=== PATIENT | female | born 1990 | race Caucasian/White ===

== ENCOUNTER 2018-02-03 20:34 | Emergency (ER) | payer OTHER ==
[2018-02-03 20:43] VITALS: BP 128/79; PULSE 82; TEMP 98; BMI 30.2
--- NOTE | 2018-02-03 21:19 | PDOC ---
History of Present Illness - General Chief Complaint: Pain Stated Complaint: RT KNEE PAIN Time Seen by Provider: 02/03/18 21:10 - History of Present Illness Initial Comments: 27-year-old female presents for evaluation of atraumatic onset of right knee pain 3 weeks. She points to the anterior aspect of the right knee as the area of his discomfort she feels her pain is exacerbated with going up and down steps and for sitting for too long and in trying to stand. 02/03/18 21:15 Past History - Past Medical History Allergies/Adverse Reactions: Allergies Allergy/AdvReac Type Severity Reaction Status Date / Time No Known Allergies Allergy Verified 02/03/18 20:44 Home Medications: Ambulatory Orders Ibuprofen [Motrin -] 600 mg PO TID #30 tablet 02/03/18 COPD: No - Suicide/Smoking/Psychosocial Hx Smoking History: Current every day smoker Number of Cigarettes Smoked Daily: 4 Information on smoking cessation initiated: No Review of Systems - Review of Systems Musculoskeletal: Yes: See HPI, Joint Pain All Other Systems: Reviewed and Negative *Physical Exam - Vital Signs Last Vital Signs Temp Pulse Resp BP Pulse Ox 98 F 82 18 128/79 98 02/03/18 20:40 02/03/18 20:40 02/03/18 20:40 02/03/18 20:40 02/03/18 20:40 - Physical Exam Comments: Right knee skin color and temperature are normal. Her extensor mechanism is intact, range of motion 0-110 with pain and crepitation in the patellofemoral compartment. She has no patellofemoral instability positive grinding. No evidence of ligamentous instability. Negative straight leg raise test, normal hip range of motion. Thighs and calves are soft and nontender. She has no gross sensorimotor deficits. The left knee exam is normal 02/03/18 21:16 Medical Decision Making - Medical Decision Making This is patellofemoral syndrome I'll have her follow-up with orthopedic surgery Tylenol and Motrin for pain. Advised on the use of anti-inflammatories. 02/03/18 21:17 *DC/Admit/Observation/Transfer Diagnosis at time of Disposition: Patella-femoral syndrome - Discharge Dispostion Disposition: HOME Condition at time of disposition: Stable Decision to Admit order: No - Referrals Referrals: ON STAFF,NOT [Primary Care Provider] - Parth Fry MD [Staff Physician] - - Patient Instructions Printed Discharge Instructions: Patellofemoral Pain Syndrome Additional Instructions: Return to the emergency room should her symptoms worsen or go unresolved. Please take the anti-inflammatory as directed with food 3 times a day discontinue the medication of bothers her stomach she need to supplement the medication you can add Tylenol as directed. Follow-up with orthopedics in 2-3 days further evaluation and treatment options - Post Discharge Activity
== END 2018-02-03 21:23 | disposition home or self-care (01) ==
LOC: JERFT 20:34
DX: M22.2X1 Patellofemoral disorders, right knee (principal)
CPT/HCPCS: 99281-25

== ENCOUNTER 2018-09-20 21:59 | Inpatient (IN) | payer OTHER ==
[2018-09-20 22:02] VITALS: BMI 34.0
--- NOTE | 2018-09-20 22:39 | PDOC ---
History of Present Illness - General Chief Complaint: Pain Stated Complaint: PAIN ON THE LEFT SIDE Time Seen by Provider: 09/20/18 22:38 - History of Present Illness Initial Comments: 09/21/18 00:27 The patient is a 27 year old female with no significant PMH who presents for evaluation of left sided chest and abdominal pain. The patient reports a 1 day history of sharp lower chest/ upper abdominal pain worse with deep inspiration prompting her presentation to the ED for further evaluation. She denies similar symptoms in the past and notes that she has to take shallow breaths secondary to the pain. She notes that the pain radiates to her back and left shoulder as well. She otherwise denies fevers, chills, cough, nausea, vomiting , leg swelling, or changes with urination or bowel movements. She notes that she is on OCPs but denies any recent long travel. Past History - Past Medical History Allergies/Adverse Reactions: Allergies Allergy/AdvReac Type Severity Reaction Status Date / Time No Known Allergies Allergy Verified 09/20/18 22:02 Home Medications: Ambulatory Orders Clonidine HCl 0.1 mg PO DAILY 09/21/18 Escitalopram Oxalate [Lexapro -] 10 mg PO DAILY 09/21/18 Norgestimate-Ethinyl Estradiol [Sprintec 28 Day Tablet] 1 tab PO DAILY 09/21/18 COPD: No - Suicide/Smoking/Psychosocial Hx Smoking History: Never smoked Number of Cigarettes Smoked Daily: 4 Review of Systems - Review of Systems Comments:: 09/21/18 00:30 Constitutional: No fevers, chills, fatigue, malaise HEENT: No Rhinorrhea, nasal congestion, visual changes Cardiovascular: Chest pain. No syncope, palpitations, lightheadedness Respiratory: No Cough, Hemoptysis, Gastrointestinal: Abdominal pain. No Nausea, Vomiting, Constipation, Diarrhea, Melena Genitourinary: No Dysuria, Frequency, Urgency, Hesitancy, Hematuria, Flank pain Musculoskeletal: No Myalgia, arthralgia Skin: No rashes, itching, bruising, pallor Neurologic: No Headache, Dizziness, Numbness, Weakness, or Tingling Psychiatric: No Hallucinations. No SI or HI *Physical Exam - Vital Signs Last Vital Signs Temp Pulse Resp BP Pulse Ox 98.2 F 86 18 132/96 96 09/20/18 22:00 09/20/18 22:00 09/20/18 22:00 09/20/18 22:00 09/20/18 22:00 - Physical Exam Comments: 09/21/18 00:32 General Appearance: Nourished. No Apparent Distress HEENT: EOMI, SANTOS. No Pharyngeal Erythema, Tonsillar Exudate, Tonsillar Erythema Neck: No Cervical Lymphadenopathy Respiratory/Chest: Lungs Clear, Normal Breath Sounds. Tenderness to palpation along the left lower rib border on exam. No Crackles, Rales, Rhonchi, Wheezing Cardiovascular: Regular Rhythm, Regular Rate. No Murmur, Gallops, Rubs Gastrointestinal/Abdominal: Normal Bowel Sounds, Soft. No Guarding, Rebound, Tenderness Musculoskeletal: No CVA Tenderness Extremity: Normal Capillary Refill Integumentary: Normal Color, Dry, Warm Neurologic: Fully Oriented, Alert, Normal Mood/Affect, Normal Response, Heart Score/ECG Review #1 ECG reviewed & interpreted by me at: 00:54 General ECG Interpretation: Sinus Rhythm, Normal Rate, Normal Intervals, No acute ischemic changes 09/21/18 00:54 Normal Sinus Rhythm HR 64 QRS 92 QTc 425 ED Treatment Course - LABORATORY CBC & Chemistry Diagram: 09/21/18 00:05 09/21/18 00:05 Medical Decision Making - Medical Decision Making 09/21/18 00:37 The patient is a 27 year old female with no significant PMH who presents for evaluation of left sided chest and abdominal pain. Differential includes but is not limited to: PE, ACS, Musculockeletal, Infectious, Metabolic Derangement. Given the patient's history and physical exam, we will obtain a cbc, cmp, d- dimer, coags, troponin, serum preg, chest plain film, ekg to evaluate further. We will treat with tylenol and continue to monitor and reassess while here in the ED. 09/21/18 01:53 CBC, cmp, troponin are unremarkable. Chest plain film is Interpreted by ED Physician: CXR (2 view): no acute abnormality; no infiltrates, bones appear intact and structures normal alignment, cardiac silhouette within normal limits. no free air under diaphragm, no pneumothorax. D-dimer is elevated to 3500. We will obtain a chest CTA to evaluate for PE. We will continue to monitor and reassess while here in the ED. 09/21/18 03:56 Chest CTA demonstrates bilateral PEs right worse than left as preliminarily read by our stoner hand radiologist. We will treat the patient with 1mg/kg lovanox and the patient will require admission for further management. We discussed the case with the admitting team who accepted the patient for admission. *DC/Admit/Observation/Transfer Diagnosis at time of Disposition: Pulmonary embolism Qualifiers: Pulmonary embolism type: unspecified Chronicity: acute Acute cor pulmonale presence: without acute cor pulmonale Qualified Code(s): I26.99 - Other pulmonary embolism without acute cor pulmonale - Discharge Dispostion Condition at time of disposition: Stable - Referrals - Patient Instructions - Post Discharge Activity
[2018-09-20] MEDS ORDERED: ACETAMINOPHEN 1000 MG/100 ML VIAL (NON FORMULARY) IVPB ONE (23:11)
[2018-09-20] MEDS ORDERED: ACETAMINOPHEN INJECTION 100 ML IVPB ONE (23:55)
[2018-09-21 00:29] LABS: BASO % 1.5 % (0-2.0); EOS % 3.8 % (0-4.5); HEMOGLOBIN 12.2 GM/dL (10.7-15.3); LYMPH % 31.8 % (8-40); MCH 30.6 pg (25.7-33.7); MCHC 33.9 g/dl (32.0-36.0); MEAN CELL VOLUME 90.1 fl (80-96); MEAN PLT VOLUME 8.4 fl (7.5-11.1); MONO % 8.4 % (3.8-10.2); NEUT % 54.5 % (42.8-82.8); PLATELET COUNT 253 K/MM3 (134-434); RDW 13.3 % (11.6-15.6); WHITE BLOOD COUNT 9.2 K/mm3 (4.0-10.0)
[2018-09-21 00:52] LABS: ALBUMIN 3.5 g/dl (3.4-5.0); ALK PHOS 36 U/L (45-117); ANION GAP 9 MMOL/L (8-16); BILIRUBIN,TOTAL 0.2 mg/dL (0.2-1); BLOOD UREA NITROGEN 12 mg/dL (7-18); CALCIUM 8.9 mg/dL (8.5-10.1); CHLORIDE 105 mmol/L (98-107); CO2 23 mmol/L (21-32); CREATININE 0.7 mg/dL (0.55-1.3); GLUCOSE,RANDOM 86 mg/dL (74-106); LIPASE 147 U/L (73-393); POTASSIUM 3.9 mmol/L (3.5-5.1); SGOT/AST 13 U/L (15-37); SGPT/ALT 18 U/L (13-61); SODIUM 137 mmol/L (136-145); TOT PROT 7.3 g/dl (6.4-8.2)
[2018-09-21 00:56] LABS: INR 0.92 (0.83-1.09); PROTHROMBIN TIME (PATIENT) 10.8 SEC (9.7-13.0)
[2018-09-21 00:59] LABS: ACTIVATED PTT 28.9 SECONDS (25.2-36.5)
[2018-09-21] MEDS ORDERED: morphine CARPU-JECT 2 MG/1 ML DISP.SYRIN IVPUSH ONE (02:54)
[2018-09-21] MEDS ORDERED: ENOXAPARIN NA (PORCINE) 100 MG/1 ML DISP.SYRIN SQ ONE ×2 (02:54→03:11)
--- NOTE | 2018-09-21 03:03 | PDOC ---
Documentation entered by Nicol Gallardo SCRIBE, acting as scribe for Liana Sheffield DO. Liana Sheffield DO: This documentation has been prepared by the Paulina dc Daisy, SCRIBE, under my direction and personally reviewed by me in its entirety. I confirm that the documentation accurately reflects all work , treatment, procedures, and medical decision making performed by me. Attending Attestation - Resident Resident Name: KellyKosta - ED Attending Attestation I have performed the following: I have examined & evaluated the patient, The case was reviewed & discussed with the resident, I agree w/resident's findings & plan - HPI HPI: 09/20/18 23:10 The patient is a 27 YOF with no PMH who presents to the ER for left sided chest / left upper quadrant pain for the past day. Patient describes the left sided chest pain/LUQ pain as sharp and pleuritic with radiation to the upper back and left shoulder. She has taken motrin and tylenol at home with no relief. Denies similar symptoms in the past. She is currently on oral contraceptives. Denies any headache, leg swelling, dizziness, lightheadedness, F/C/N/V, constipation, diarrhea, or urinary symptoms. Allergies: NKDA PCP: Dr. Hall - Physicial Exam PE: 09/20/18 23:10 Agree with resident's exam. - Medical Decision Making 09/21/18 03:02 09/21/18 03:00: 38-year-old female with left-sided pleuritic chest pain CTAs consistent with bilateral pulmonary emboli Lovenox 1 mg/kg given subcutaneous in the emergency department with plans for admission for further evaluation
[2018-09-21] MEDS ORDERED: morphine SULFATE 4 MG/ML VIAL ONE ×2 (03:11→07:22)
--- NOTE | 2018-09-21 03:38 | PN ---
Teaching Attending Note Name of Resident: Kulwinder Cortez ATTENDING PHYSICIAN STATEMENT I saw and evaluated the patient. I reviewed the resident's note and discussed the case with the resident. I agree with the resident's findings and plan as documented. SUBJECTIVE: Seen and examined; please refer to resident note for further historical documentation. Briefly, this is a 27 y/o female presenting to the ER with 1 day of L-sided pleuritic chest pain radiating to her back and right neck not relieved with PRN use of OTC analgesics. Pain progressed enough she chose to come in. She has some associated diaphoresis. She notes mild evolving SOB over past several weeks. No family history of clotting, no recent travel. She does use OCPs and she smokes tobacco. She is overweight. 10 sys ROS done and negative aside from HPI PMH, PSH, FH, SH reviewed Home Medications Medication Instructions Recorded NK [No Known Home Medication] 09/21/18 *DOES TAKE LEXAPRO, Clonidine PRN for depression, Sprintec (OCP)- med list to be updated OBJECTIVE: VS, labs, imaging reviewed NAD, AAO, resting comfortably in bed RRR s1/2 no mgr Lungs CTAB, w/ sym exp NT ND +BS CN2-12 wnl, no fnd Normal mood, appropriate behavior CTA preliminary report shows filling defects seen in the bilateral PA b/l R>L EKG reviewed ASSESSMENT AND PLAN: Patient presents with pulmonary embolism 1) Acute Pulmonary Embolism -Lovenox BID, followup echo for R-sided changes, repeat troponin -Monitor telemetry; recommend OP hypercoagulable workup -DC OCP, recommend weight loss and smoking cessasion 2) Depression -Continue home medications once reconciled 3) Tobacco abuse -Counseled to stop smoking 4) Obesity -Weight loss counseling prior to DC Full Code
--- NOTE | 2018-09-21 03:48 | HP ---
CHIEF COMPLAINT: Pain on inspiration PCP: None HISTORY OF PRESENT ILLNESS: Pt is a 27 y/o lady with a PMH of Depression who presented to [facility] c/o pain in her left upper abdomen. Pt endorses that she began to develop severe pain in her right upper abdomen this past Thursday morning. Pt states the pain is sharp in nature, 10/10 in severity, constant, and radiates to her back as well as to the right side of her neck. Pt denies ever experiencing this type of pain in the past. Pt denies any recent trauma or prolonged travel. Denies any family history of blood clots. Pt also states that for the past few weeks, she has noticed that she has been more short of breath, especially when walking up to her 3rd floor apartment. Denies chest pain, lightheadedness, nausea/vomiting, hemoptysis or fever. Endorses increased sweating since Thursday. PMH- Colitis hospitalized at [facility] 2 years ago Social Hx- Denies alcohol use. Smokes 2 cigarettes per day. Denies drug use FH- Mother 5 cardiac stents. Father healthy. No FH of clotting disorders Meds- Spin-primo control, clonidine 0.1 mg, Lexapro 10 mg SurgHx- Cleft lip repair ER course was notable for: (1) CT Chest: B/L PE. Filling defects seen in pulmonary artery branches bilaterally. Right greater than left. (2) Administered Lovenox 100 MG Family History: Allergies No Known Allergies Allergy (Verified 09/20/18 22:02) HOME MEDICATIONS: Home Medications Medication Instructions Recorded NK [No Known Home Medication] 09/21/18 REVIEW OF SYSTEMS CONSTITUTIONAL: Absent: fever, chills, diaphoresis, generalized weakness, malaise, loss of appetite, weight change HEENT: Absent: rhinorrhea, nasal congestion, throat pain, throat swelling, difficulty swallowing, mouth swelling, ear pain, eye pain, visual changes CARDIOVASCULAR: Absent: chest pain, syncope, palpitations, irregular heart rate, lightheadedness , peripheral edema RESPIRATORY: PRESENT cough, shortness of breath, dyspnea with exertion GASTROINTESTINAL: Absent: abdominal pain, abdominal distension, nausea, vomiting, diarrhea, constipation, melena, hematochezia GENITOURINARY: Absent: dysuria, frequency, urgency, hesitancy, hematuria, flank pain, genital pain MUSCULOSKELETAL: Absent: myalgia, arthralgia, joint swelling, back pain, neck pain SKIN: Absent: rash, itching, pallor HEMATOLOGIC/IMMUNOLOGIC: Absent: easy bleeding, easy bruising, lymphadenopathy, frequent infections ENDOCRINE: Absent: unexplained weight gain, unexplained weight loss, heat intolerance, cold intolerance NEUROLOGIC: Absent: headache, focal weakness or paresthesias, dizziness, unsteady gait, seizure, mental status changes, bladder or bowel incontinence PSYCHIATRIC: Absent: anxiety, depression, suicidal or homicidal ideation, hallucinations. PHYSICAL EXAMINATION Vital Signs - 24 hr 09/20/18 22:00 Temperature 98.2 F Pulse Rate 86 Respiratory 18 Rate Blood Pressure 132/96 O2 Sat by Pulse 96 Oximetry (%) GENERAL: NAD HEAD: Normal with no signs of trauma. EYES: EOMI Sclera Clear EARS, NOSE, THROAT: MMM NECK: Normal range of motion, supple without lymphadenopathy, JVD, or masses. LUNGS: CTAB HEART: RRRR NL S1S2 ABDOMEN: TTP LUQ MUSCULOSKELETAL: FROM UPPER EXTREMITIES: 2+ pulses, warm, well-perfused. No cyanosis. No clubbing. No peripheral edema. LOWER EXTREMITIES: No CCE NEUROLOGICAL: Cranial nerves II-XII intact. Normal speech. Normal gait. PSYCHIATRIC: Cooperative. Good eye contact. Appropriate mood and affect. SKIN: Warm, dry, normal turgor, no rashes or lesions noted, normal capillary refill. Laboratory Results - last 24 hr 09/21/18 09/21/18 09/21/18 00:01 00:05 00:05 WBC 9.2 RBC 4.00 Hgb 12.2 Hct 36.0 MCV 90.1 MCH 30.6 MCHC 33.9 RDW 13.3 Plt Count 253 MPV 8.4 Absolute Neuts (auto) 5.0 Neutrophils % 54.5 Lymphocytes % 31.8 Monocytes % 8.4 Eosinophils % 3.8 Basophils % 1.5 Nucleated RBC % 0 PT with INR INR PTT (Actin FS) D-Dimer Sodium 137 Potassium 3.9 Chloride 105 Carbon Dioxide 23 Anion Gap 9 BUN 12 Creatinine 0.7 Creat Clearance w eGFR 99.64 Random Glucose 86 Calcium 8.9 Total Bilirubin 0.2 AST 13 L ALT 18 Alkaline Phosphatase 36 L Creatine Kinase 60 Troponin I < 0.02 Total Protein 7.3 Albumin 3.5 Lipase 147 Serum , Qual Negative 09/21/18 09/21/18 09/21/18 00:05 00:05 00:05 WBC RBC Hgb Hct MCV MCH MCHC RDW Plt Count MPV Absolute Neuts (auto) Neutrophils % Lymphocytes % Monocytes % Eosinophils % Basophils % Nucleated RBC % PT with INR 10.80 INR 0.92 PTT (Actin FS) 28.9 D-Dimer 3504 H Sodium Potassium Chloride Carbon Dioxide Anion Gap BUN Creatinine Creat Clearance w eGFR Random Glucose Calcium Total Bilirubin AST ALT Alkaline Phosphatase Creatine Kinase Cancelled Troponin I Cancelled Total Protein Albumin Lipase Serum , Qual ASSESSMENT/PLAN: Pt is a 27 y/o lady with a PMH of Depression who presented to [facility] c/o pain in her left upper abdomen. Pt endorses that she began to develop severe pain in her right upper abdomen this past Thursday morning. #Bilateral Pulmonary Embolism -CT Chest W/ Contrast: B/L PE. Filling defects seen in pulmonary artery branches bilaterally. Right greater than left. - PE Anticoagulation: either may administer Lovenox 1 mg/kg Q12H or 1.5 mg/kg Daily. Administered Lovenox 100 MG in ED. Will continue patient on Lovenox 100 mg Q12H with option to bridge with Heparin until therapeutic INR or can switch to a DOAC. Day team to decide. -Will need to undergo full hypercoaguable work-up including Factor V Leiden Deficiency, Protein C and S deficiency. Heme Referral upon discharge -Will order echocardiogram to asses for Right ventricular dilation, right ventricular hypokinesia/dysfunction( Cazares's Sign) -Pt reports taking Sprintec (Norgestimate and Ethinyl Estradiol) OCP. Will D/C OCP and samara counseled patient on danger of concomitant tobacco use as synergistic effect in clot formation. -Will admit to Telemetry # Depression: Continue Clonidine and Lexapro #FEN No fluids Monitor Electrolytes Regular Diet #DVT ppx: Lovenox 100 mg Q12H #Dispo: Telemetry Visit type - Emergency Visit Emergency Visit: Yes ED Registration Date: 09/21/18 Care time: The patient presented to the Emergency Department on the above date and was hospitalized for further evaluation of their emergent condition. - New Patient This patient is new to me today: Yes Date on this admission: 09/21/18 - Critical Care Critical Care patient: No
[2018-09-21 06:11] LABS: EOS % 4.2 % (0-4.5); HEMATOCRIT 36.2 % (32.4-45.2); HEMOGLOBIN 12.2 GM/dL (10.7-15.3); LYMPH % 37.5 % (8-40); MCH 30.2 pg (25.7-33.7); MCHC 33.8 g/dl (32.0-36.0); MEAN CELL VOLUME 89.5 fl (80-96); MEAN PLT VOLUME 8.4 fl (7.5-11.1); MONO % 7.4 % (3.8-10.2); NEUT % 49.9 % (42.8-82.8); PLATELET COUNT 259 K/MM3 (134-434); RBC 4.05 M/mm3 (3.60-5.2); RDW 13.3 % (11.6-15.6); WHITE BLOOD COUNT 8.4 K/mm3 (4.0-10.0)
[2018-09-21 06:35] LABS: INR 0.99 (0.83-1.09); PROTHROMBIN TIME (PATIENT) 11.7 SEC (9.7-13.0)
[2018-09-21 06:37] LABS: ACTIVATED PTT 34.8 SECONDS (25.2-36.5)
[2018-09-21 06:49] LABS: ALBUMIN 3.5 g/dl (3.4-5.0); ALK PHOS 37 U/L (45-117); ANION GAP 10 MMOL/L (8-16); BILIRUBIN,TOTAL 0.3 mg/dL (0.2-1); BLOOD UREA NITROGEN 12 mg/dL (7-18); CHLORIDE 105 mmol/L (98-107); CO2 23 mmol/L (21-32); CREATININE 0.9 mg/dL (0.55-1.3); GLUCOSE,RANDOM 100 mg/dL (74-106); MAGNESIUM 2.2 mg/dL (1.8-2.4); PHOSPHOROUS 3.1 mg/dL (2.5-4.9); POTASSIUM 3.9 mmol/L (3.5-5.1); SGOT/AST 11 U/L (15-37); SGPT/ALT 16 U/L (13-61); SODIUM 138 mmol/L (136-145)
[2018-09-21 07:14] VITALS: TEMP 97.9
[2018-09-21] MEDS ORDERED: cloNIDine HCL 0.1 MG TABLET PO SCH (10:00)
[2018-09-21] MEDS ORDERED: ESCITALOPRAM OXALATE 10 MG TABLET (FP) PO SCH (10:00)
[2018-09-21] MEDS ORDERED: cloNIDine HCL 0.1 MG TABLET ONE (10:05)
[2018-09-21] MEDS ORDERED: ESCITALOPRAM OXALATE 10 MG TABLET (FP) ONE (10:06)
--- NOTE | 2018-09-21 11:53 | ECHO ---
Version: 1 Name: SONIA NORWOOD Exam: Adult Echocardiogram Study Date: 09/21/2018, 9:07 AM Age: 27 Years MMode/2D Measurements & Calculations IVSd: 0.73 cm LVIDs: 3.4 cm LVIDd: 4.7 cm LVPWd: 0.76 cm LVOT diam: 2.12 cm Ao root diam: 2.5 cm LA dimension: 3.5 cm Doppler Measurements & Calculations Lat Peak E' Declan: 17.6 cm/sec Med Peak E' Declan: 9.7 cm/sec MR max P.0 mmHg Ao max P.7 mmHg Ao mean P.1 mmHg Ao V2 max: 129.4 cm/sec TR max declan: 192.1 cm/sec TR max P.8 mmHg Procedure A complete two-dimensional transthoracic echocardiogram was performed (2D, M-mode, Doppler and color flow Doppler). The patient was in normal sinus rhythm during the exam. Left Ventricle The left ventricular size, thickness and function are normal. Ejection Fraction = 60%. Left Ventricu lar Filling pattern is normal for age. Right Ventricle Borderline right ventricular enlargement. The right ventricular systolic function is normal. Atria Normal left and right atrial size and function. Mitral Valve The mitral valve is normal. There is trace mitral regurgitation. Tricuspid Valve The tricuspid valve is normal. There is mild tricuspid regurgitation. Doppler findings do not sugges t pulmonary hypertension. Right ventricular systolic pressure is 20 mmhg. Aortic Valve The aortic valve is normal in structure and function. Pulmonic Valve The pulmonic valve is normal in structure and function. Trace pulmonic valvular regurgitation. Great Vessels The aortic root is normal size. Pericardium/Pleura There is no pericardial effusion. There is no pleural effusion. Summary Statements The left ventricular size, thickness and function are normal Ejection Fraction = 60%. Borderline right ventricular enlargement. The right ventricular systolic function is normal. Normal left and right atrial size and function. There is trace mitral regurgitation. There is mild tricuspid regurgitation. Doppler findings do not suggest pulmonary hypertension. Right ventricular systolic pressure is 20 mmhg. Trace pulmonic valvular regurgitation. MD Deandre Gill 09/21/2018, 10:53 AM Ordering Physician: FLACO SOTO Referring Physician: TEAGAN DANIELS Performed By: Paloma Osei
--- NOTE | 2018-09-21 11:53 | PN ---
Physical Exam: SUBJECTIVE: Patient seen and examined OBJECTIVE: Vital Signs Period Temp Pulse Resp BP Sys/Montanez Pulse Ox Last 24 Hr 97.9 F-98.2 F 75-86 18 111-132/57-96 96-99 GENERAL: The patient is awake, alert, and fully oriented, in no acute distress. HEAD: Normal with no signs of trauma. EYES: PERRL, extraocular movements intact, sclera anicteric, conjunctiva clear. No ptosis. ENT: Ears normal, nares patent, oropharynx clear without exudates, moist mucous membranes. NECK: Trachea midline, full range of motion, supple. LUNGS: Breath sounds equal, clear to auscultation bilaterally, no wheezes, no crackles, no accessory muscle use. HEART: Regular rate and rhythm, S1, S2 without murmur, rub or gallop. ABDOMEN: Soft, nontender, nondistended, normoactive bowel sounds, no guarding, no rebound, no hepatosplenomegaly, no masses. EXTREMITIES: 2+ pulses, warm, well-perfused, no edema. NEUROLOGICAL: Cranial nerves II through XII grossly intact. Normal speech, gait not observed. PSYCH: Normal mood, normal affect. SKIN: Warm, dry, normal turgor, no rashes or lesions noted Laboratory Results - last 24 hr 09/21/18 09/21/18 09/21/18 00:01 00:05 00:05 WBC 9.2 RBC 4.00 Hgb 12.2 Hct 36.0 MCV 90.1 MCH 30.6 MCHC 33.9 RDW 13.3 Plt Count 253 MPV 8.4 Absolute Neuts (auto) 5.0 Neutrophils % 54.5 Lymphocytes % 31.8 Monocytes % 8.4 Eosinophils % 3.8 Basophils % 1.5 Nucleated RBC % 0 PT with INR INR PTT (Actin FS) D-Dimer Sodium 137 Potassium 3.9 Chloride 105 Carbon Dioxide 23 Anion Gap 9 BUN 12 Creatinine 0.7 Creat Clearance w eGFR 99.64 Random Glucose 86 Calcium 8.9 Phosphorus Magnesium Total Bilirubin 0.2 AST 13 L ALT 18 Alkaline Phosphatase 36 L Creatine Kinase 60 Troponin I < 0.02 Total Protein 7.3 Albumin 3.5 Lipase 147 Serum , Qual Negative 09/21/18 09/21/18 09/21/18 00:05 00:05 00:05 WBC RBC Hgb Hct MCV MCH MCHC RDW Plt Count MPV Absolute Neuts (auto) Neutrophils % Lymphocytes % Monocytes % Eosinophils % Basophils % Nucleated RBC % PT with INR 10.80 INR 0.92 PTT (Actin FS) 28.9 D-Dimer 3504 H Sodium Potassium Chloride Carbon Dioxide Anion Gap BUN Creatinine Creat Clearance w eGFR Random Glucose Calcium Phosphorus Magnesium Total Bilirubin AST ALT Alkaline Phosphatase Creatine Kinase Cancelled Troponin I Cancelled Total Protein Albumin Lipase Serum , Qual 09/21/18 09/21/18 09/21/18 05:20 05:20 06:00 WBC 8.4 RBC 4.05 Hgb 12.2 Hct 36.2 MCV 89.5 MCH 30.2 MCHC 33.8 RDW 13.3 Plt Count 259 MPV 8.4 Absolute Neuts (auto) 4.2 Neutrophils % 49.9 Lymphocytes % 37.5 Monocytes % 7.4 Eosinophils % 4.2 Basophils % 1.0 Nucleated RBC % 0 PT with INR 11.70 INR 0.99 PTT (Actin FS) 34.8 D-Dimer Sodium 138 Potassium 3.9 Chloride 105 Carbon Dioxide 23 Anion Gap 10 BUN 12 Creatinine 0.9 Creat Clearance w eGFR 74.56 Random Glucose 100 Calcium 9.0 Phosphorus 3.1 Magnesium 2.2 Total Bilirubin 0.3 AST 11 L ALT 16 Alkaline Phosphatase 37 L Creatine Kinase Troponin I Total Protein 7.0 Albumin 3.5 Lipase Serum , Qual Active Medications Generic Name Dose Route Start Last Admin Trade Name Freq PRN Reason Stop Dose Admin Clonidine 0.1 mg 09/21/18 10:00 09/21/18 10:10 Catapres - PO 0.1 mg DAILY DARSHAN Administration Enoxaparin Sodium 100 mg 09/21/18 15:30 Lovenox - SQ Q12H [facility] Escitalopram Oxalate 10 mg 09/21/18 10:00 09/21/18 10:10 Lexapro - PO 10 mg DAILY DARSHAN Administration ASSESSMENT/PLAN:
--- NOTE | 2018-09-21 11:58 | CON.PULM ---
Consult Consult Specialty:: PULMONARY Referred by:: Dr Quiles Reason for Consultation:: pulmonary embolism - History of Present Illness Chief Complaint: chest pain History of Present Illness: 27yo female with h/o depression who presents with right sided chest pain x 2 days. Pain sharp in nature, worse with deep inspiration. Found to have bilateral filling defects on CTA chest. She is a light smoker, started OCP about 2 1/2 months ago. No personal or family history of clots. She is not sedentary, no recent prolonged immobility. No leg trauma. - History Source History Provided By: Patient, Medical Record Limitations to Obtaining History: No Limitations - Past Medical History Psych: Yes: Depression - Smoking History Smoking history: Never smoked Aproximately how many cigarettes per day: 4 Home Medications - Allergies Allergies/Adverse Reactions: Allergies Allergy/AdvReac Type Severity Reaction Status Date / Time No Known Allergies Allergy Verified 09/20/18 22:02 - Home Medications Home Medications: Ambulatory Orders Clonidine HCl 0.1 mg PO DAILY 09/21/18 Escitalopram Oxalate [Lexapro -] 10 mg PO DAILY 09/21/18 Norgestimate-Ethinyl Estradiol [Sprintec 28 Day Tablet] 1 tab PO DAILY 09/21/18 Review of Systems - Review of Systems Constitutional: denies: Chills, Fever Eyes: denies: Recent Change in Vision HENT: denies: Nasal Congestion, Throat Pain Neck: denies: Stiffness, Tenderness Cardiovascular: reports: Chest Pain, Shortness of Breath. denies: Edema, Palpitations Respiratory: denies: Cough, Hemoptysis, Wheezing Gastrointestinal: denies: Abdominal Pain, Nausea, Vomiting Genitourinary: denies: Dysuria, Hematuria Neurological: denies: Dizziness, Headache Endocrine: denies: Unexplained Weight Loss Physical Exam Vital Sings: Vital Signs Temperature 97.9 F 09/21/18 07:13 Pulse Rate 75 09/21/18 07:13 Respiratory Rate 18 09/20/18 22:00 Blood Pressure 111/57 L 09/21/18 07:13 O2 Sat by Pulse Oximetry (%) 99 09/21/18 07:13 Constitutional: Yes: Calm Eyes: Yes: Conjunctiva Clear, EOM Intact HENT: Yes: Atraumatic, Normocephalic Neck: Yes: Supple, Trachea Midline Cardiovascular: Yes: Regular Rate and Rhythm Respiratory: Yes: Regular, CTA Bilaterally ...Clubbing: No Gastrointestinal: Yes: Normal Bowel Sounds, Soft. No: Tenderness Edema: No Neurological: Yes: Alert, Oriented Labs: CBC, BMP 09/21/18 05:20 09/21/18 05:20 Imaging - Results Chest X-ray: Report Reviewed, Image Reviewed Cat Scan: Report Reviewed, Image Reviewed (bilateral segmental PEs) Assessment/Plan Acute Bilateral Pulmonary Emboli Depression - continue anticoagulation - echocardiogram - if no evidence of right heart dysfunction, can start PO anticoagulation - O2 to keep Spo2 >90% - pain control - will need anticoagulation for at least 6 months - smoking cessation discussed - stop OCPs Thank you for this consult Rohit Alford MD
--- NOTE | 2018-09-21 12:27 | EKG ---
Test Reason : Blood Pressure : / mmHG Vent. Rate : 064 BPM Atrial Rate : 064 BPM P-R Int : 152 ms QRS Dur : 092 ms QT Int : 412 ms P-R-T Axes : 016 038 007 degrees QTc Int : 425 ms NORMAL SINUS RHYTHM WITH SINUS ARRHYTHMIA NORMAL ECG Confirmed by MD ADRI, CALEB ([id number]) on 09/21/2018 12:26:59 PM Referred By: Confirmed By:CALEB RUSH MD
[2018-09-21] MEDS ORDERED: ACETAMINOPHEN 325 MG TABLET (FP) PO PRN (13:13)
[2018-09-21] MEDS ORDERED: ACETAMINOPHEN 1000 MG/100 ML VIAL (NON FORMULARY) IVPB ONE (13:25)
--- NOTE | 2018-09-21 13:48 | PN ---
Teaching Attending Note Name of Resident: Nu Blue ATTENDING PHYSICIAN STATEMENT I saw and evaluated the patient. I reviewed the resident's note and discussed the case with the resident. I agree with the resident's findings and plan as documented. SUBJECTIVE: L sided chest pain, with deep respiration. no SOB, no fever or chills. no cough. OBJECTIVE: NAD CV: RRR, no MRG Lungs: CTAB Abd; soft, NT, ND , NL Bs , no masses felt Ext : no edema or erythema. ASSESSMENT AND PLAN: 27 y/o lady with h/o anxiety, on OCPs, and nicotine dependence. She presented with chest pain and was found to have acute b/l PEs. 1- B/l PEs: likely due to OCP use. No signs of R heart strain on EKG and echo. - will switch to po AC, will call her pharmacy for insurance coverage. - she agrees to AC, accepting the risk of bleed , even spinal bleed with NOAcs. if NoCAs are not covered, then will start coumadin - stop OCP. No smoking - f/u with heme as out pt - duration at least 6 months, heme w/u and further Recs - Not requiring any O2 at rest. will perform pre-and post ambulatory pulse ox. 2- Depression and anxiety: lexapro and clonidine ( clonidine was prescribed to her recently ) dispo : dc home today pending insurance approval
[2018-09-21] MEDS ORDERED: RIVAROXABAN 15 MG TABLET PO ONE (15:00)
[2018-09-21] MEDS ORDERED: ACETAMINOPHEN INJECTION 100 ML IVPB ONE (15:07)
[2018-09-21 15:29] VITALS: BP 102/65; PULSE 56
[2018-09-21] MEDS ORDERED: ENOXAPARIN NA (PORCINE) 100 MG/1 ML DISP.SYRIN SQ SCH (15:30)
--- NOTE | 2018-09-21 16:28 | DS ---
Physical Exam: SUBJECTIVE: Patient seen and examined this AM. Continues to have Left sided chest pain with deep inspiration. Denies any SOB, hemoptysis. Denies any personal or FHx of clotting disorders, no hx of miscarriages. OBJECTIVE: Vital Signs Period Temp Pulse Resp BP Sys/Montanez Pulse Ox Last 24 Hr 97.9 F-98.2 F 56-86 16-18 102-132/57-96 96-99 PHYSICAL EXAM GENERAL: A&Ox3, NAD HEAD: NCAT EYES: PERRL, EOMI ENT: moist mucous membranes NECK: supple LUNGS: Clear to auscultation bilaterally, no wheezes, no crackles HEART: Regular rate and rhythm, S1, S2 without murmur ABDOMEN: Soft, nontender, nondistended, + bowel sounds, no guarding EXTREMITIES: no edema, Negative hommans sign NEUROLOGICAL: Cranial nerves II through XII grossly intact. Normal speech SKIN: Warm, dry LABS Laboratory Results - last 24 hr 09/21/18 09/21/18 09/21/18 00:01 00:05 00:05 WBC 9.2 RBC 4.00 Hgb 12.2 Hct 36.0 MCV 90.1 MCH 30.6 MCHC 33.9 RDW 13.3 Plt Count 253 MPV 8.4 Absolute Neuts (auto) 5.0 Neutrophils % 54.5 Lymphocytes % 31.8 Monocytes % 8.4 Eosinophils % 3.8 Basophils % 1.5 Nucleated RBC % 0 PT with INR INR PTT (Actin FS) D-Dimer Sodium 137 Potassium 3.9 Chloride 105 Carbon Dioxide 23 Anion Gap 9 BUN 12 Creatinine 0.7 Creat Clearance w eGFR 99.64 Random Glucose 86 Calcium 8.9 Phosphorus Magnesium Total Bilirubin 0.2 AST 13 L ALT 18 Alkaline Phosphatase 36 L Creatine Kinase 60 Troponin I < 0.02 Total Protein 7.3 Albumin 3.5 Lipase 147 Serum , Qual Negative 09/21/18 09/21/18 09/21/18 00:05 00:05 00:05 WBC RBC Hgb Hct MCV MCH MCHC RDW Plt Count MPV Absolute Neuts (auto) Neutrophils % Lymphocytes % Monocytes % Eosinophils % Basophils % Nucleated RBC % PT with INR 10.80 INR 0.92 PTT (Actin FS) 28.9 D-Dimer 3504 H Sodium Potassium Chloride Carbon Dioxide Anion Gap BUN Creatinine Creat Clearance w eGFR Random Glucose Calcium Phosphorus Magnesium Total Bilirubin AST ALT Alkaline Phosphatase Creatine Kinase Cancelled Troponin I Cancelled Total Protein Albumin Lipase Serum , Qual 09/21/18 09/21/18 09/21/18 05:20 05:20 06:00 WBC 8.4 RBC 4.05 Hgb 12.2 Hct 36.2 MCV 89.5 MCH 30.2 MCHC 33.8 RDW 13.3 Plt Count 259 MPV 8.4 Absolute Neuts (auto) 4.2 Neutrophils % 49.9 Lymphocytes % 37.5 Monocytes % 7.4 Eosinophils % 4.2 Basophils % 1.0 Nucleated RBC % 0 PT with INR 11.70 INR 0.99 PTT (Actin FS) 34.8 D-Dimer Sodium 138 Potassium 3.9 Chloride 105 Carbon Dioxide 23 Anion Gap 10 BUN 12 Creatinine 0.9 Creat Clearance w eGFR 74.56 Random Glucose 100 Calcium 9.0 Phosphorus 3.1 Magnesium 2.2 Total Bilirubin 0.3 AST 11 L ALT 16 Alkaline Phosphatase 37 L Creatine Kinase Troponin I Total Protein 7.0 Albumin 3.5 Lipase Serum , Qual IMAGING: -CXR: Arthritic spine changes. Bilateral atelectatic change by left heart border. -CTA: Bilateral pulmonary artery emboli, as described above. Normal size and enhancement of the thoracic and included proximal abdominal aorta. Atelectatic changes in lingular segment of the left upper lobe as well as in the left lung base with a small left pleural effusion. Cannot rule out superimposed infiltrates. -ECHO: LV EF 60%, Borderline RV Enlargement, RV Systolic function is normal. LA and RA size and function normal. Trace MR, Mild TR. -EKG: NSR with Sinus arrhythmia, VR 64, QTc 425 HOSPITAL COURSE: Date of Admission:09/21/18 Date of Discharge: 09/21/18 27 y/o F with PMHx of Depression, Anxiety presented with LUQ Pain, found to have b/l PE on CTA. Imaging and labwork noted above. Pulmonology was consulted. Echo did not reveal signs of right heart strain. Patient was started on Lovenox and eventually transitioned to PO Rivaroxaban. Patients SOB resolved and her chest pain improved. She was advised to follow up with Hematology outpatient for a full hypercoaguable workup. Patient was advised to completely stop smoking and to stop OCP use. Additionally she was advised on strict medication compliance and informed she will require DOAC for atleast 6 months. Finally, she was advised to stop clonidine use and to follow up with her PCP for alternatives. Patient was discharged home with strict instructions for medication compliance, tobacco and OCP cessation and physician follow up. Minutes to complete discharge: 36 Discharge Summary Reason For Visit: PULMONARY EMBOLISM Condition: Stable - Instructions Diet, Activity, Other Instructions: You were admitted to the hospital because you had a difficulty breathing and were found to have pulmonary embolism. You were started on a blood thinner and your shortness of breath improved. Medication Changes: 1. You are being started on Xarelto. this medication is a BLOOD THINNER--- Please watch for any signs of bleeding including in your stool--PLEASE CALL YOUR DOCTOR OR RETURN TO THE EMERGENCY ROOM IF YOU EXPERIENCE THIS Please take 15mg Twice a day for 21 days starting tomorrow. Then take 20mg once a day afterwards.(on 10/14/18) As we discussed, it is VERY IMPORTANT that you do not smoke or use tobacco products any more. You will also need to to stop taking oral contraceptives as well. It is also advised to discuss other alternatives to clonidine for your anxiety with your primary care doctor. It is not a first line medication for anxiety. Follow up with the following physicians: 1. Primary care physician in one week for follow up lab work, and you may need a speech and swallow evaluation 2. Hematology--Dr. Hernandez---You need to have a hypercoaguable work-up to rule out any other causes of blood clot. Continue all your other medications as prescribed Please return to the ER if you have any signs or symptoms of chest pain, shortness of breath, uncontrollable fever, chills, nausea, vomiting, numbness, tingling, or weakness in any part of your body, changes in vision, slurred speech, changes in speech/gait, or dizziness. Please return to the ER if symptoms persist, worsen, or new symptoms arise. Referrals: Mitch Hernandez MD [Staff Physician] - Disposition: HOME - Home Medications Comprehensive Discharge Medication List: Ambulatory Orders Escitalopram Oxalate [Lexapro -] 10 mg PO DAILY 09/21/18 Rivaroxaban [Xarelto -] 20 mg PO DAILY #60 tablet 09/21/18 Rivaroxaban [Xarelto] 15 mg PO BID 21 Days #42 tab 09/21/18 This patient is new to me today: Yes Date on this admission: 09/21/18 Emergency Visit: Yes ED Registration Date: 09/21/18 Care time: The patient presented to the Emergency Department on the above date and was hospitalized for further evaluation of their emergent condition. Critical Care patient: No - Discharge Referral [facility]erred to [facility] Med P.C.: No
== END 2018-09-21 15:42 | disposition home or self-care (01) | DRG 134 ==
LOC: JER 21:59 → JERBED 09-21 03:20
PROVIDERS: ADMIT Internal Medicine; ATTEND Internal Medicine
DX: I26.99 Other pulmonary embolism without acute cor pulmonale (principal); F32.9 Major depressive disorder, single episode, unspecified; E66.9 Obesity, unspecified; F41.9 Anxiety disorder, unspecified; F17.210 Nicotine dependence, cigarettes, uncomplicated; Z68.34 Body mass index [BMI] 34.0-34.9, adult
CPT/HCPCS: 36415; 71046-TC-FY; 71275-TC; 80053; 82550; 83690; 83735; 84100; 84484; 84703; 85025; 85379; 85610; 85730; 93005; 93010; 93306-TC; 99284-25; J0131; J0735

== ENCOUNTER 2018-11-14 22:35 | Emergency (ER) | payer OTHER ==
[2018-11-14 22:57] VITALS: TEMP 98.5; BMI 34.0
[2018-11-15] MEDS ORDERED: SODIUM CHLORIDE 1,000 ML IV STA (00:37)
--- NOTE | 2018-11-15 01:02 | PDOC ---
History of Present Illness - General Chief Complaint: Lightheaded Stated Complaint: LIGHTHEADED Time Seen by Provider: 11/15/18 00:00 History Source: Patient Exam Limitations: No Limitations - History of Present Illness Initial Comments: 11/15/18 00:37 27 y/o F with PMHx of Depression, Anxiety, B/L PE (on Xarelto) presents with lightheadedness. Patient was in her usual state of health until this evening. While standing in the kitchen, she began to experience lightheadedness with dizziness and feelings of passing out. Shortly after she felt diaphoretic. This episode lasted a few minutes prompting her to visit the ED. Patient admits to decreased PO intake with persistent feelings of nausea. Additionally, she mentions having diarrhea for the past week, having 5 episodes of loose, odd smelling, non bloody BM's today. Patient was recently admitted to [facility] for B/L PE's and was started on Xarelto. She has not followed with Hematology since then. She has however stopped using Tobacco and OCPs. Patient endorses chronic SOB with exertion and intermittent chest discomfort. During my interview patient does not feel SOB or chest discomfort/pain. Denies any recent trauma, ABx use, travel, new resturants/cuisine, sick contacts or recent medication changes. Denies any Fevers, chills, weakness, chest pain, SOB, nausea, vomiting, diarrhea constipation, dysuria. PCP: Rafael (Gurpreet Solis) PMHx: Depression, Anxiety, B/L PE PSHx: Cleft Palate repair Allergies: Denies Social: Denies Tobacco, EtOH or Drug use, Not on OCP at this time FHx: Mother with heart disease (5 cardiac stents) Past History - Past Medical History Allergies/Adverse Reactions: Allergies Allergy/AdvReac Type Severity Reaction Status Date / Time No Known Allergies Allergy Verified 11/14/18 22:53 Home Medications: Ambulatory Orders Escitalopram Oxalate [Lexapro -] 10 mg PO DAILY 09/21/18 Rivaroxaban [Xarelto -] 20 mg PO DAILY #60 tablet 09/21/18 Methylphenidate HCl [Concerta] 18 mg PO DAILY 11/14/18 Rivaroxaban [Xarelto -] 20 mg PO DAILY #30 tablet 11/15/18 COPD: No Other medical history: pulmonary embolism - Suicide/Smoking/Psychosocial Hx Smoking History: Former smoker Have you smoked in the past 12 months: Yes Number of Cigarettes Smoked Daily: 4 If you are a former smoker, when did you quit?: 2 months ago Information on smoking cessation initiated: No Review of Systems - Review of Systems Constitutional: No: Chills, Fever Respiratory: Yes: SOB with Exertion (for the past 2 months). No: Cough Cardiac (ROS): Yes: Lightheadedness. No: Chest Pain ABD/GI: Yes: Diarrhea, Nausea. No: Constipated, Vomiting : No: Dysuria, Hematuria Neurological: No: Numbness, Tingling *Physical Exam - Vital Signs Last Vital Signs Temp Pulse Resp BP Pulse Ox 98.5 F 101 H 20 138/84 97 11/14/18 22:54 11/14/18 22:54 11/14/18 22:54 11/14/18 22:54 11/14/18 22:54 - Physical Exam General Appearance: Yes: Nourished, Appropriately Dressed HEENT: positive: EOMI, SANTOS. negative: Pharyngeal Erythema, Tonsillar Exudate Neck: positive: Supple Respiratory/Chest: positive: Lungs Clear, Normal Breath Sounds. negative: Accessory Muscle Use, Crackles, Rhonchi, Wheezing Cardiovascular: positive: Regular Rhythm, Regular Rate, S1, S2. negative: Edema , JVD, Murmur Gastrointestinal/Abdominal: positive: Normal Bowel Sounds, Soft. negative: Guarding, Rebound, Tenderness Musculoskeletal: negative: CVA Tenderness Extremity: negative: Swelling Neurologic: positive: iridologist II-XII NML intact, Fully Oriented, Alert, Motor Strength 5/5 ED Treatment Course - LABORATORY CBC & Chemistry Diagram: 11/15/18 00:55 11/15/18 00:55 Medical Decision Making - Medical Decision Making 11/15/18 01:01 27 y/o F with PMHx of Depression, Anxiety, B/L PE (on Xarelto) presents with lightheadedness and dizziness in the setting of recent diarrhea. Has a hx of Colitis 2 years ago but has not followed with GI nor has had the recommended colonoscopy. Loose BM's are non bloody and NOT accompanied by cramping abdominal pain, Hx less suggestive of infectious etiology. Concern that the diarrheal episodes have led to metabolic derraingements, but unclear etiology of diarrhea. EKG: NSR with no ST segment changes, VR 74, QTc 435 Will Check CBC, CMP, Cardiac profile, mag, phos, UA, UPreg, INR, orthostatic vitals Hydrate with 1L NS Bolus Ongoing assessment 11/15/18 01:35 Orthostatics Positive. Continue IV Hydration. Signed out to Dr. Sorenson. *DC/Admit/Observation/Transfer Diagnosis at time of Disposition: Lightheaded - Discharge Dispostion Disposition: HOME Condition at time of disposition: Stable - Prescriptions Prescriptions: Rivaroxaban [Xarelto -] 20 mg PO DAILY #30 tablet - Referrals Referrals: Kosta Hall MD [Primary Care Provider] - - Patient Instructions Printed Discharge Instructions: Diarrhea Additional Instructions: Your ER visit is not complete until your follow up with your primary care physician. Please follow up with your primary care physician in 1-2 days. Please return to the ER if you have any signs or symptoms of chest pain, shortness of breath, uncontrollable fever, chills, nausea, vomiting, numbness, tingling, or weakness in any part of your body, changes in vision, or slurred speech. Please take your medications as prescribed. Please return to the ER if symptoms persist, worsen, or new symptoms arise. - Post Discharge Activity
[2018-11-15 01:06] LABS: HCG,QUALITATIVE URINE Negative
[2018-11-15 01:19] LABS: EOS % 4.2 % (0-4.5); HEMATOCRIT 38.7 % (32.4-45.2); HEMOGLOBIN 13.2 GM/dL (10.7-15.3); LYMPH % 41.2 % (8-40); MCH 30.4 pg (25.7-33.7); MCHC 34.3 g/dl (32.0-36.0); MEAN CELL VOLUME 88.8 fl (80-96); MEAN PLT VOLUME 8.4 fl (7.5-11.1); MONO % 9.8 % (3.8-10.2); NEUT % 43.8 % (42.8-82.8); PLATELET COUNT 257 K/MM3 (134-434); RBC 4.35 M/mm3 (3.60-5.2); RDW 13.6 % (11.6-15.6); WHITE BLOOD COUNT 8.4 K/mm3 (4.0-10.0)
[2018-11-15 01:27] LABS: INR 0.9 (0.83-1.09); PROTHROMBIN TIME (PATIENT) 10.6 SEC (9.7-13.0)
[2018-11-15 01:30] LABS: ACTIVATED PTT 35.2 SECONDS (25.2-36.5)
[2018-11-15 01:33] LABS: URINE APPEARANCE CLOUDY; URINE BILIRUBIN NEGATIVE (NEGATIVE); URINE COLOR YELLOW; URINE GLUCOSE (UA) NEGATIVE (NEGATIVE); URINE KETONE NEGATIVE (NEGATIVE)
[2018-11-15 01:34] LABS: PH,URINE 5.5 (5.0-8.0); URINE PROTEIN NEGATIVE (NEGATIVE); URINE UROBILINOGEN 0.2 mg/dL (0.2-1.0)
[2018-11-15 01:35] LABS: URINE LEUK ESTERASE NEGATIVE (NEGATIVE); URINE NITRITE NEGATIVE (NEGATIVE)
[2018-11-15] MEDS ORDERED: RIVAROXABAN 15 MG TABLET PO ONE (01:44)
[2018-11-15 01:45] LABS: ALBUMIN 4.1 g/dl (3.4-5.0); ALK PHOS 37 U/L (45-117); ANION GAP 8 MMOL/L (8-16); BILIRUBIN,TOTAL 0.2 mg/dL (0.2-1); BLOOD UREA NITROGEN 16.9 mg/dL (7-18); CALCIUM 8.9 mg/dL (8.5-10.1); CHLORIDE 107 mmol/L (98-107); CO2 25 mmol/L (21-32); CREATININE 0.8 mg/dL (0.55-1.3); GLUCOSE,RANDOM 81 mg/dL (74-106); MAGNESIUM 2.3 mg/dL (1.8-2.4); PHOSPHOROUS 4.5 mg/dL (2.5-4.9); SGOT/AST 16 U/L (15-37); SGPT/ALT 24 U/L (13-61); SODIUM 141 mmol/L (136-145); TOT PROT 7.5 g/dl (6.4-8.2)
--- NOTE | 2018-11-15 01:47 | PDOC ---
*Physical Exam - Vital Signs Last Vital Signs Temp Pulse Resp BP Pulse Ox 98.5 F 70 20 113/68 97 11/14/18 22:54 11/15/18 01:20 11/14/18 22:54 11/15/18 01:20 11/14/18 22:54 ED Treatment Course - LABORATORY CBC & Chemistry Diagram: 11/15/18 00:55 11/15/18 00:55 - ADDITIONAL ORDERS Additional order review: Laboratory Results 11/15/18 11/15/18 11/15/18 00:55 00:55 00:55 PT with INR 10.60 INR 0.90 PTT (Actin FS) 35.2 Sodium 141 Potassium 4.0 Chloride 107 Carbon Dioxide 25 Anion Gap 8 BUN 16.9 Creatinine 0.8 Est GFR (CKD-EPI)AfAm 116.28 Est GFR (CKD-EPI)NonAf 100.33 Random Glucose 81 Calcium 8.9 Phosphorus 4.5 Magnesium 2.3 Total Bilirubin 0.2 AST 16 ALT 24 Alkaline Phosphatase 37 L Creatine Kinase Cancelled 132 Troponin I Cancelled < 0.02 Total Protein 7.5 Albumin 4.1 Urine Color Urine Appearance Urine pH Ur Specific [place] Urine Protein Urine Glucose (UA) Urine Ketones Urine Blood Urine Nitrite Urine Bilirubin Urine Urobilinogen Ur Leukocyte Esterase Urine HCG, Qual 11/15/18 00:45 PT with INR INR PTT (Actin FS) Sodium Potassium Chloride Carbon Dioxide Anion Gap BUN Creatinine Est GFR (CKD-EPI)AfAm Est GFR (CKD-EPI)NonAf Random Glucose Calcium Phosphorus Magnesium Total Bilirubin AST ALT Alkaline Phosphatase Creatine Kinase Troponin I Total Protein Albumin Urine Color Yellow Urine Appearance Cloudy Urine pH 5.5 Ur Specific [place] 1.030 Urine Protein Negative Urine Glucose (UA) Negative Urine Ketones Negative Urine Blood Negative Urine Nitrite Negative Urine Bilirubin Negative Urine Urobilinogen 0.2 Ur Leukocyte Esterase Negative Urine HCG, Qual Negative 11/15/18 00:55 RBC 4.35 MCV 88.8 MCHC 34.3 RDW 13.6 MPV 8.4 Neutrophils % 43.8 Lymphocytes % 41.2 H Monocytes % 9.8 Eosinophils % 4.2 Basophils % 1.0 - Medications Given in the ED: ED Medications Discontinued Medications Generic Name Dose Route Start Last Admin Trade Name Freq PRN Reason Stop Dose Admin Sodium Chloride 1,000 mls @ 1,000 mls/hr 11/15/18 00:37 11/15/18 00:55 Normal Saline - IV 11/15/18 01:36 1,000 mls/hr ASDIR STA Administration Medical Decision Making - Medical Decision Making 11/15/18 01:46 Pt signed out to me by Dr. Blue. 27F with a PMH of PE on xarelto (hasn't taken it in 5 days) who presents to the ER with lightheadedness and diarrhea. Orthostatics positive. Giving fluids and reassessing. PE and EKG unremarkable. Will reassess after fluids. Pending CMP, trop, and lipase. 11/15/18 03:23 IVF complete. Pt states she feels much better. Will recheck orthostats. 11/15/18 03:52 Pt states she feels better. Will d/c with PCP f/u. *DC/Admit/Observation/Transfer Diagnosis at time of Disposition: Lightheaded - Discharge Dispostion Disposition: HOME Condition at time of disposition: Stable Decision to Admit order: No - Prescriptions Prescriptions: Rivaroxaban [Xarelto -] 20 mg PO DAILY #30 tablet - Referrals Referrals: Kosta Hall MD [Primary Care Provider] - - Patient Instructions Printed Discharge Instructions: Diarrhea Additional Instructions: Your ER visit is not complete until your follow up with your primary care physician. Please follow up with your primary care physician in 1-2 days. Please return to the ER if you have any signs or symptoms of chest pain, shortness of breath, uncontrollable fever, chills, nausea, vomiting, numbness, tingling, or weakness in any part of your body, changes in vision, or slurred speech. Please take your medications as prescribed. Please return to the ER if symptoms persist, worsen, or new symptoms arise. - Post Discharge Activity
[2018-11-15 01:56] LABS: LIPASE 209 U/L (73-393)
--- NOTE | 2018-11-15 01:58 | PDOC ---
Attending Attestation - Resident Resident Name: Nu Blue - ED Attending Attestation I have performed the following: I have examined & evaluated the patient, The case was reviewed & discussed with the resident, I agree w/resident's findings & plan, Exceptions are as noted - HPI HPI: 11/15/18 01:55 This 27 yo female came in this evening because she has had 5 days of light, nonbloody, loose stools, and tonight felt lightheaded and clammy. PMH significant for PE diagnosed in August this year for which she is prescribed Xarelto but admits to running out of this medication 5 days ago. - Physicial Exam PE: 11/15/18 01:58 wnwd 27 yo female in no acute distress head ncat neck supple lungs cta b/l cvs [id number] abd no rebound, no guarding skin warm and dry no cvs tenderness neuro axox3,ambulatory,motor strength 5/5, b/l,no gross focal neuro deficits - Medical Decision Making 11/15/18 02:00 pt is afebrile, she is not hypoxic,she is not tachypnic and has a normal respiratory rate. She did not have any shortness of breath and she has no pleuretic chest pain - pt main c/o is diarrhea for several days and has positive orthostatic changes and is receiving IVF she was given xarelto will reassess after IVF
[2018-11-15 03:40] VITALS: BP 99/51; PULSE 83
--- NOTE | 2018-11-15 10:06 | EKG ---
Test Reason : Blood Pressure : / mmHG Vent. Rate : 074 BPM Atrial Rate : 074 BPM P-R Int : 146 ms QRS Dur : 094 ms QT Int : 392 ms P-R-T Axes : 014 033 020 degrees QTc Int : 435 ms NORMAL SINUS RHYTHM NORMAL ECG WHEN COMPARED WITH ECG OF 21-SEP-2018 00:38, NO SIGNIFICANT CHANGE WAS FOUND Confirmed by JOHN ROMAN MD ([id number]) on 11/15/2018 10:06:25 AM Referred By: Confirmed By:JOHN ROMAN MD
[2018-11-16] MEDS ORDERED: RIVAROXABAN 20 MG TABLET PO SCH (10:00)
== END 2018-11-15 04:50 | disposition home or self-care (01) ==
LOC: JER 22:35
PROC: 3E0337Z Introduction of Electrolytic and Water Balance Substance into Peripheral Vein, Percutaneous Approach (ICD-10-PCS; principal; 2018-11-14)
DX: R42 Dizziness and giddiness (principal); F41.9 Anxiety disorder, unspecified; F32.9 Major depressive disorder, single episode, unspecified; Z86.711 Personal history of pulmonary embolism; Z79.01 Long term (current) use of anticoagulants
CPT/HCPCS: 36415; 80053; 81003; 82550; 83690; 83735; 84100; 84484; 84703; 85025; 85610; 85730; 93005; 93010; 96360; 99283-25; J7030

== ENCOUNTER 2019-06-27 11:46 | Emergency (ER) | payer OTHER ==
[2019-06-27 12:04] VITALS: BMI 34.7
--- NOTE | 2019-06-27 13:23 | PDOC ---
History of Present Illness - General History Source: Patient Exam Limitations: No Limitations - History of Present Illness Initial Comments: 06/27/19 13:17 Patient is a 28-year-old female who presents to the ED with complaint of back pain that radiates into her left anterior chest that she has had for the last 3 days. She states the pain feels exactly the same as to when she was diagnosed with PEs. 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 She stopped taking her Xarelto 1 month ago on her own. She saw her environmental compliance inspector 3 days ago and they were reassessing whether or not the patient needed to stay on the Xarelto. She had repeat labs drawn at that office visit. The patient is suspected to have antiphospholipid syndrome. <Lorena Vigil - Last Filed: 06/27/19 17:46> <Philipp Carranza - Last Filed: 06/27/19 17:58> - General Chief Complaint: Back Pain Stated Complaint: LUNG PAIN Time Seen by Provider: 06/27/19 12:57 Past History - Past Medical History COPD: No - Psycho Social/Smoking Cessation Hx Smoking History: Former smoker Have you smoked in the past 12 months: No Number of Cigarettes Smoked Daily: 4 If you are a former smoker, when did you quit?: 2018 Information on smoking cessation initiated: No Hx Alcohol Use: No Drug/Substance Use Hx: No <Lorena Vigil - Last Filed: 06/27/19 17:46> <Philipp Carranza - Last Filed: 06/27/19 17:58> - Past Medical History Allergies/Adverse Reactions: Allergies Allergy/AdvReac Type Severity Reaction Status Date / Time No Known Allergies Allergy Verified 06/27/19 12:04 Home Medications: Ambulatory Orders Escitalopram Oxalate [Lexapro -] 10 mg PO DAILY 09/21/18 Rivaroxaban [Xarelto -] 20 mg PO DAILY #60 tablet 09/21/18 Methylphenidate HCl [Concerta] 18 mg PO DAILY 11/14/18 Rivaroxaban [Xarelto -] 20 mg PO DAILY #30 tablet 11/15/18 Review of Systems - Review of Systems Comments:: 06/27/19 13:20 - Review of Systems Able to Perform ROS?: Yes Constitutional: No: Fever, Chills, Loss of Appetite, Night Sweats, Weakness HEENTM: No: Eye Pain, Vision changes, Ear Pain, Throat Pain, Throat Swelling, Mouth Pain, Difficulty Swallowing Respiratory: No: Cough, Shortness of Breath, Wheezing, Sputum Production Cardiac (ROS): No: Chest Pain, Chest Tightness, Palpitations, Irregular Heart Beat, Edema; back pain radiating into her chest ABD/GI: No: Nausea, Vomiting, Abdominal Pain, Diarrhea : No Dysuria, No Hematuria, No Frequency, No Urgency Musculoskeletal: No: Muscle Pain, Back Pain, Joint Pain, Muscle Weakness, Neck Pain Integumentary: No: Lesions, Rash Neurological: No: Headache, Numbness, Tingling, Weakness, Speech Difficulties <Lorena Vigil - Last Filed: 06/27/19 17:46> *Physical Exam - Vital Signs Last Vital Signs Temp Pulse Resp BP Pulse Ox 98.4 F 76 16 140/86 100 06/27/19 12:01 06/27/19 12:01 06/27/19 12:01 06/27/19 12:06/27/19 12:01 - Physical Exam 06/27/19 13:21 - Physical Exam General Appearance: Nourished, Appropriately Dressed, No Distress HEENT: EOMI, Normal Voice, No Pharyngeal Erythema, No Muffled/Hoarse voice, No Tonsillar Exudate, No Tonsillar Erythema, No Nasal Congestion, No Rhinorrhea, Hearing Grossly Normal, TMs Normal, No TM Bulging, No TM Dullness, No TM Erythema Neck: Supple, No Lymphadenopathy (R), No Lymphadenopathy (L), No Rigidity, No Decreased range of motion Respiratory/Chest: Lungs Clear, Normal Breath Sounds. No Respiratory Distress, No Accessory Muscle Use; no adventitious lung sounds Cardiovascular: Regular Rhythm, Regular Rate, S1, S2 Gastrointestinal/Abdominal: Normal Bowel Sounds, Soft. Non-tender, No Guarding , No Rebound, No Rigidity Musculoskeletal: Normal Inspection. No Decreased Range of Motion Extremity: Normal Capillary Refill, Normal Inspection Integumentary: Normal Color, Dry. No Rash Neurologic: ice cream scooper II-XII NML intact, Fully Oriented, Alert, Normal Mood/Affect, Normal Response <Lorena Vigil D - Last Filed: 06/27/19 17:46> - Vital Signs Last Vital Signs Temp Pulse Resp BP Pulse Ox 98.4 F 76 16 140/86 100 06/27/19 12:01 06/27/19 12:01 06/27/19 12:01 06/27/19 12:01 06/27/19 12:01 <Philipp Carranza - Last Filed: 06/27/19 17:58> ED Treatment Course - LABORATORY CBC & Chemistry Diagram: 06/27/19 13:00 06/27/19 13:00 - RADIOLOGY Radiology Studies Ordered: Category Date Time Status CHEST CTA [CT] Stat CT Scan 06/27/19 13:03 Ordered <Lorena Vigil - Last Filed: 06/27/19 17:46> - LABORATORY CBC & Chemistry Diagram: 06/27/19 13:00 06/27/19 13:00 - ADDITIONAL ORDERS Additional order review: Laboratory Results 06/27/19 06/27/19 06/27/19 13:00 13:00 13:00 PT with INR 13.50 H INR 1.14 H PTT (Actin FS) 43.5 H Sodium 139 Potassium 4.2 Chloride 108 H Carbon Dioxide 25 Anion Gap 6 L BUN 13.7 Creatinine 0.7 Est GFR (CKD-EPI)AfAm 135.70 Est GFR (CKD-EPI)NonAf 117.08 Random Glucose 88 Calcium 9.5 Total Bilirubin 0.4 AST 17 ALT 25 Alkaline Phosphatase 40 L Creatine Kinase 97 Troponin I < 0.02 Total Protein 7.8 Albumin 4.0 Serum , Qual Negative 06/27/19 13:00 RBC 4.48 MCV 87.5 MCHC 33.9 RDW 13.6 MPV 7.8 Neutrophils % 45.2 Lymphocytes % 40.5 H Monocytes % 8.4 Eosinophils % 4.5 Basophils % 1.4 <Philipp Carranza - Last Filed: 06/27/19 17:58> Medical Decision Making - Medical Decision Making 06/27/19 13:23 Patient is a 28-year-old female with history of multiple PEs who stopped taking her Xarelto 1 month ago. She states several days ago she began to have similar left lung, back pain radiating into her chest. The patient will require work- up for a PE. -Labs sent for further evaluation -IV placed -CTA chest ordered -Will reassess 06/27/19 13:24 EKG 12:16 sinus bradycardia @ 57 bpm There is an upward Q in lead III Flipped T in lead 3 06/27/19 17:[address] scan is negative for acute PE and there is interval resolution of previously seen PEs. The patient has been made aware of these findings and she will follow up with her environmental compliance inspector tomorrow. She understands and agrees with treatment and plan and she is stable for discharge. <Lorena Vigil - Last Filed: 06/27/19 17:46> - Medical Decision Making 06/27/19 17:58 I reviewed the case of the mid-level practitioner and was available for consultation while in the emergency department <Philipp Carranza - Last Filed: 06/27/19 17:58> Discharge - Discharge Information Problems reviewed: Yes <Lorena Vigil - Last Filed: 06/27/19 17:46> <Philipp Carranza - Last Filed: 06/27/19 17:58> - Discharge Information Clinical Impression/Diagnosis: Back pain Qualifiers: Back pain location: thoracic back pain Chronicity: acute Back pain laterality: left Qualified Code(s): M54.6 - Pain in thoracic spine Condition: Stable Disposition: HOME - Follow up/Referral Referrals: Kosta Hall MD [Primary Care Provider] - - Patient Discharge Instructions Patient Printed Discharge Instructions: DI for Thoracic Back Pain Additional Instructions: Your CT scan was negative for any acute pulmonary embolisms and it actually showed resolution of your previous pulmonary embolisms. You must follow-up with your environmental compliance inspector and I would call him in the morning you should call in the morning to schedule an appointment within the next few days. Get plenty of rest and drink plenty of fluids. - Post Discharge Activity Work/Back to School Note: Back to Work
[2019-06-27 13:29] LABS: BASO % 1.4 % (0-2.0); EOS % 4.5 % (0-4.5); HEMATOCRIT 39.2 % (32.4-45.2); HEMOGLOBIN 13.3 GM/dL (10.7-15.3); LYMPH % 40.5 % (8-40); MCH 29.7 pg (25.7-33.7); MCHC 33.9 g/dl (32.0-36.0); MEAN CELL VOLUME 87.5 fl (80-96); MEAN PLT VOLUME 7.8 fl (7.5-11.1); MONO % 8.4 % (3.8-10.2); NEUT % 45.2 % (42.8-82.8); PLATELET COUNT 293 K/MM3 (134-434); RBC 4.48 M/mm3 (3.60-5.2); RDW 13.6 % (11.6-15.6)
[2019-06-27 13:40] LABS: INR 1.14 (0.83-1.09); PROTHROMBIN TIME (PATIENT) 13.5 SEC (9.7-13.0)
[2019-06-27 13:43] LABS: ACTIVATED PTT 43.5 SECONDS (25.2-36.5)
[2019-06-27 13:59] LABS: ALK PHOS 40 U/L (45-117); ANION GAP 6 MMOL/L (8-16); BILIRUBIN,TOTAL 0.4 mg/dL (0.2-1); BLOOD UREA NITROGEN 13.7 mg/dL (7-18); CALCIUM 9.5 mg/dL (8.5-10.1); CHLORIDE 108 mmol/L (98-107); CO2 25 mmol/L (21-32); CREATININE 0.7 mg/dL (0.55-1.3); GLUCOSE,RANDOM 88 mg/dL (74-106); POTASSIUM 4.2 mmol/L (3.5-5.1); SGOT/AST 17 U/L (15-37); SGPT/ALT 25 U/L (13-61); SODIUM 139 mmol/L (136-145); TOT PROT 7.8 g/dl (6.4-8.2)
[2019-06-27 18:16] VITALS: BP 138/79; PULSE 78; TEMP 98.3
--- NOTE | 2019-06-28 12:05 | EKG ---
Test Reason : Blood Pressure : / mmHG Vent. Rate : 057 BPM Atrial Rate : 057 BPM P-R Int : 144 ms QRS Dur : 088 ms QT Int : 400 ms P-R-T Axes : 019 045 024 degrees QTc Int : 389 ms SINUS BRADYCARDIA WITH MARKED SINUS ARRHYTHMIA OTHERWISE NORMAL ECG Confirmed by MD ADRI, CALEB ([id number]) on 06/28/2019 12:05:10 PM Referred By: Confirmed By:CALEB RUSH MD
== END 2019-06-27 18:16 | disposition home or self-care (01) ==
LOC: JER 11:46
DX: M54.6 Pain in thoracic spine (principal); Z86.711 Personal history of pulmonary embolism; Z87.891 Personal history of nicotine dependence
CPT/HCPCS: 36415; 71275-TC; 80053; 82550; 84484; 84703; 85025; 85610; 85730; 93005; 93010; 99282-25

== ENCOUNTER 2019-07-03 17:17 | Emergency (ER) | payer OTHER ==
[2019-07-03 17:23] VITALS: BP 112/70; PULSE 72; TEMP 98.4; BMI 35.4
[2019-07-03] MEDS ORDERED: KETOROLAC TROMETHAMINE 60 MG/2 ML VIAL IM ONE (17:54)
[2019-07-03] MEDS ORDERED: LIDOCAINE 5% TOPICAL PATCH TP ONE (17:54)
--- NOTE | 2019-07-03 17:57 | PDOC ---
History of Present Illness - General Chief Complaint: Back Pain Stated Complaint: BACK PAIN Time Seen by Provider: 07/03/19 17:32 History Source: Patient Exam Limitations: No Limitations Past History - Past Medical History Allergies/Adverse Reactions: Allergies Allergy/AdvReac Type Severity Reaction Status Date / Time No Known Allergies Allergy Verified 07/03/19 17:23 Home Medications: Ambulatory Orders Escitalopram Oxalate [Lexapro -] 10 mg PO DAILY 07/03/19 Lidocaine 5% Patch [Lidoderm -] 1 patch TP DAILY #7 patch 07/03/19 Methocarbamol [Robaxin -] 1,500 mg PO QID #24 tablet 07/03/19 Methylphenidate HCl [Concerta] 27 mg PO DAILY 07/03/19 COPD: No Other medical history: PE 09/21/18 - Psycho Social/Smoking Cessation Hx Smoking History: Former smoker Have you smoked in the past 12 months: Yes Number of Cigarettes Smoked Daily: 4 If you are a former smoker, when did you quit?: 2018 Information on smoking cessation initiated: No Hx Alcohol Use: No Drug/Substance Use Hx: No *Physical Exam - Vital Signs Last Vital Signs Temp Pulse Resp BP Pulse Ox 98.4 F 72 18 112/70 99 07/03/19 17:19 07/03/19 17:19 07/03/19 17:19 07/03/19 17:19 07/03/19 17:19 - Physical Exam General Appearance: No: Apparent Distress Respiratory/Chest: positive: Lungs Clear, Normal Breath Sounds. negative: Respiratory Distress Cardiovascular: positive: Regular Rhythm, Regular Rate, S1, S2. negative: Murmur Musculoskeletal: positive: Muscle Spasm (along L thoracic spinal muscles). negative: CVA Tenderness, Vertebral Tenderness Integumentary: positive: Normal Color. negative: Swelling, Ecchymosis, Bruising Neurologic: positive: Alert Medical Decision Making - Medical Decision Making 28 y/o F hx of PE (stopped Xarelto 1.5 months ago) presents with L upper back pain >1 week worse with movement of her body and taking in deep breath. Was here last week for similar sxs and had CT chest done which was negative for PE. Has been using Motrin but states has not helped with pain. 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 Denies fever, abd pain, n/v, urinary sxs, weakness of extremities. Unlikely PE given negative PE study last week Could be muscle spasms Plan: Toradol, Robaxin 07/03/19 17:59 Patient feeling much better on reassessment stable for dc 07/03/19 18:42 Discharge - Discharge Information Problems reviewed: Yes Clinical Impression/Diagnosis: Back muscle spasm Condition: Stable Disposition: HOME - Admission No - Additional Discharge Information Prescriptions: Lidocaine 5% Patch [Lidoderm -] 1 patch TP DAILY #7 patch Methocarbamol [Robaxin -] 1,500 mg PO QID #24 tablet Prescription Drug Monitoring Program (I-STOP) results: I-STOP not reviewed - Follow up/Referral Referrals: Kylie Breaux MD [Primary Care Provider] - 2 Days - Patient Discharge Instructions Patient Printed Discharge Instructions: DI for Muscle Spasm Additional Instructions: Thank you for choosing [facility]. It was a pleasure taking care of you. Alternate between Tylenol 650 mg every 4 and Motrin 600 mg every 6 hours as needed for pain Use Robaxin as needed for muscle spasms. This medication can make you drowsy. Heating pads/epsom salt baths may also help Follow-up with your doctor in 2 days Return to the Emergency Department if your symptoms worsen or persist or have other concerning symptoms. - Post Discharge Activity
[2019-07-03] MEDS ORDERED: LIDOCAINE 5% TOPICAL PATCH ONE (17:58)
[2019-07-03] MEDS ORDERED: KETOROLAC TROMETHAMINE 60 MG/2 ML VIAL ONE (17:58)
[2019-07-03] MEDS ORDERED: METHOCARBAMOL 500 MG TABLET ONE (17:59)
[2019-07-03] MEDS ORDERED: METHOCARBAMOL 750 MG TABLET PO ONE (18:00)
[2019-07-03] MEDS ORDERED: LIDOCAINE PATCH REMOVAL MC SCH (22:00)
== END 2019-07-03 18:50 | disposition home or self-care (01) ==
LOC: JERFT 17:17
DX: M62.830 Muscle spasm of back (principal); Z86.711 Personal history of pulmonary embolism; Z87.891 Personal history of nicotine dependence
CPT/HCPCS: 99282-25